=== PATIENT | male | born 1950 | race Caucasian/White ===

== ENCOUNTER 2016-04-10 16:34 | Emergency (ER) | payer OTHER ==
[~2016-04-10] VITALS: Ht 167.6 cm; Wt 91.3 kg
[~2016-04-10 16:34] MED LIST: ASPIR-LOW81 MG PO; DOCUSATE SODIU100 MG PO; ENDOCET 5-3251 EACH PO; IBUPROFEN600 MG PO; METOPROLOL SUC100 MG PO; PERCOCET 5/31 TABLET PO; PRAVASTATIN SOD40 MG PO; SPIRIVA1 INHALATI IH; VALSARTAN-HCTZ1 EAC3 PO; ZOFRAN4 MG PO
[2016-04-10 17:24] LABS: HEMATOCRIT 49.9 % (38.0-50.0); MCHC 34.5 G/DL (30.0-36.0); MCV 92.8 FL (86-99); MEAN PLAT.VOLUME 10.1 uM^3 (9.0-12.4); PLATELET COUNT 277 K/uL (156-360); RBC DIS.WIDTH-CV 12.9 % (11.8-14.6); RBC DIS.WIDTH-SD 42.9 % (39-53); RED BLOOD COUNT 5.38 M/uL (4.00-5.50); WHITE BLOOD COUNT 16.3 K/uL (4.1-10.2)
[2016-04-10 17:33] LABS: CHLORIDE 98 mEq/L (99-109); POTASSIUM 4.2 mEq/L (3.7-5.4); SODIUM 136 mEq/L (136-147)
[2016-04-10 17:35] LABS: GLUCOSE 110 mg/dL (70-99)
[2016-04-10 17:36] LABS: ANION GAP 12 MEQ/L (2-14)
[2016-04-10 17:39] LABS: GFR ESTIMATE (CALCULATED) > 59 mL/min/
[2016-04-10 17:40] LABS: UREA NITROGEN (BUN) 24 mg/dL (9-23)
[2016-04-10 17:44] LABS: ADD MIUA? NO; BILIRUBIN NEGATIVE; BLOOD NEGATIVE; COLOR YELLOW ((YELLOW)); GLUCOSE (STRIP) NEGATIVE; KETONES 15; LEUKOCYTES NEGATIVE; NITRITE NEGATIVE; PH, URINE 5.5 (5-8); PROTEIN (STRIP) NEGATIVE; SPECIFIC GRAVITY 1.032 (1.000-1.030); UCUL ADDED? NO; UROBILINOGEN 0.2 MG/DL (0.2-1.0)
[2016-04-10 20:07] LABS: TOTAL BILIRUBIN 0.8 mg/dL (0.0-1.0)
[2016-04-10 20:08] LABS: ALKALINE PHOSPHATASE 82 IU/L (3-129)
[2016-04-10 20:11] LABS: DIRECT BILIRUBIN 0.3 mg/dL (0.0-0.3)
[2016-04-10 20:12] LABS: LIPASE 52 U/L (1.0-51.0)
[2016-04-10] MEDS ORDERED: TORADOL10 MG PO (23:01)
[2016-04-10] MEDS ORDERED: ZOFRAN ODT4 MG PO (23:01)
[2016-04-10 23:45] VITALS: BP 156/97
== END 2016-04-10 23:48 | disposition home or self-care (01) ==
LOC: EME 16:34
DX: R10.30 Lower abdominal pain, unspecified (principal); M54.5 Low back pain; R11.2 Nausea with vomiting, unspecified; J44.9 Chronic obstructive pulmonary disease, unspecified; I10 Essential (primary) hypertension; Z79.82 Long term (current) use of aspirin; Z87.891 Personal history of nicotine dependence
CPT/HCPCS: 74176; 80048; 80076; 81003; 83690; 85027; 99281; 99284; J1885